=== PATIENT | female | born 1985 ===

== ENCOUNTER 2018-08-22 22:49 | Emergency (ER) | payer OTHER ==
[2018-08-22 23:26] VITALS: RESP 18; O2SAT 100
[2018-08-23] MEDS ORDERED: Naproxen 500 MG TAB PO ONE ×2 (00:04→00:12)
[2018-08-23 00:23] VITALS: BP 132/90; PULSE 80; TEMP 98.4
--- NOTE | 2018-09-09 20:17 | ED PDOC ---
HPI: Influenza Time Seen by Provider: 08/22/18 23:28 Chief Complaint: Flu-like Symptoms History Per: Patient Additional complaint(s):: Pt. states for the past 6 days she's had cough, congestion, and fever. Has been taking OTC meds with transient relief. Of note, pt. states several of her coworkers also have similar symptoms. Denies chest pain, SOB, hemoptysis, N/V/D, rash, recent travel, sore throat. Past Medical History Reviewed: Historical Data, Nursing Documentation, Vital Signs Vital Signs: Last Vital Signs Temp 98.4 F 08/23/18 00:22 Pulse 80 08/23/18 00:22 Resp 18 08/23/18 00:22 BP 132/90 08/23/18 00:22 Pulse Ox 100 08/23/18 00:22 - Family History Family History: States: No Known Family Hx - Home Medications Home Medications: Ambulatory Orders Medication Instructions Recorded Benzonatate [Tessalon Perle] 100 mg PO Q8 PRN #10 capsule 08/23/18 Fluticasone Propionate [Flonase] 2 spr NS DAILY PRN #1 bottle 08/23/18 - Allergies Allergies/Adverse Reactions: Allergies Allergy/AdvReac Type Severity Reaction Status Date / Time No Known Allergies Allergy Verified 08/22/18 23:21 Review of Systems ROS Statement: Except As Marked, All Systems Reviewed And Found Negative Constitutional: Positive for: Fever ENT: Positive for: Nose Congestion Respiratory: Positive for: Cough Physical Exam - Physical Exam Appears: Positive for: Well, Non-toxic, No Acute Distress Skin: Positive for: Normal Color, Warm. Negative for: Rash Eye Exam: Positive for: Normal appearance. Negative for: Conjunctival injection (b/l) ENT: Positive for: Normal ENT Inspection Neck: Positive for: Normal, Painless ROM, Supple Cardiovascular/Chest: Positive for: Regular Rate, Rhythm. Negative for: Tachycardia Respiratory: Positive for: Normal Breath Sounds. Negative for: Crackles, Rales, Rhonchi, Wheezing, Respiratory Distress Gastrointestinal/Abdominal: Positive for: Soft. Negative for: Tenderness Neurological/Psych: Positive for: Awake, Alert, Oriented (x3) - ECG O2 Sat by Pulse Oximetry: 100 Disposition - Clinical Impression Clinical Impression: Influenza-like symptoms - Patient ED Disposition Is Patient to be Admitted: No - Disposition Referrals: [facility] [Outside] Disposition: Routine/Home Disposition Time: 00:22 Condition: STABLE Additional Instructions: FOLLOW UP WITH YOUR DOCTOR FOR FURTHER EVALUATION RETURN TO ED IMMEDIATELY IF SYMPTOMS WORSEN RA COOLEY, thank you for letting us take care of you today. Your provider was Chinmay Myers MD and you were treated for FLU-LIKE SYMPTOMS. The emergency medical care you received today was directed at your acute symptoms. If you were prescribed any medication, please fill it and take as directed. It may take several days for your symptoms to resolve. Return to the Emergency Department if your symptoms worsen, do not improve, or if you have any other problems. Please contact your doctor or call one of the physicians/clinics you have been referred to that are listed on the Patient Visit Information form that is included in your discharge packet. Bring any paperwork you were given at discharge with you along with any medications you are taking to your follow up visit. Our treatment cannot replace ongoing medical care by a primary care provider outside of the emergency department. Thank you for allowing the [facility] team to be part of your care today. If you had an X-Ray or CT scan: A Radiologist will review the ED reading if any change in treatment is needed we will contact you. If you had a blood, urine, or wound culture: It will take several days for the results, if any change in treatment is needed we will contact you. If you had an STI test: It will take 48 hours for the results. Please call after 1 week if you have not heard back. Prescriptions: Benzonatate [Tessalon Perle] 100 mg PO Q8 PRN #10 capsule PRN Reason: Cough Fluticasone Propionate [Flonase] 2 spr NS DAILY PRN #1 bottle PRN Reason: Allergy Symptoms Instructions: Flu, Adult (DC) Forms: [employer] ([place]), [facility] ED School/Work Excuse
== END 2018-08-23 00:23 | disposition home or self-care (01) ==
LOC: H.ER 22:49
DX: J11.1 Influenza due to unidentified influenza virus with other respiratory manifestations (principal)